=== PATIENT | female | born 1950 | race Caucasian/White ===

== ENCOUNTER 2021-10-09 06:00 | Outpatient (RCR) | payer MEDICARE, BC, SELFPAY | END 2021-10-24 23:59 | disposition home or self-care (01) | LOC: MPT 06:00 | PROVIDERS: PCP Family Medicine; Referring Provider Family Medicine; Visit Provider Family Medicine | DX: N39.41 Urge incontinence (principal) | CPT/HCPCS: 97110; 97140; 97161; 97530 ==

== ENCOUNTER 2021-10-25 06:00 | Outpatient (RCR) | payer MEDICARE, BC, SELFPAY | END 2021-11-24 23:59 | disposition home or self-care (01) | LOC: MPT 06:00 | PROVIDERS: PCP Family Medicine; Referring Provider Family Medicine; Visit Provider Family Medicine | DX: N39.41 Urge incontinence (principal) | CPT/HCPCS: 97110; 97140; 97530 ==

== ENCOUNTER 2021-10-26 09:14 | Outpatient (CLI) | payer MEDICARE, BC, SELFPAY ==
--- NOTE | 2021-10-26 09:20 | US_ITS ---
WS: [email or web address] ULTRASOUND ABDOMEN LIMITED CLINICAL INFORMATION: ABNORMAL LEVELS OF OTHER SERUM ENZYMES COMPARISON: None. FINDINGS: Liver Size: Normal. Craniocaudal length: 11.7 cm. Echogenicity: Normal. Surface nodularity: None. Mass (size and location): None. Bile ducts Intrahepatic ducts: Normal. Common bile duct diameter: 0.3 cm. Gallbladder Normal. Gallstones: None. Gallbladder sludge: None. Gallbladder wall thickening: None. Pericholecystic fluid: None. Sonographic Clarke sign: Absent. Pancreas Normal as visualized. Right kidney: Normal. Hydronephrosis: None. Size: 10.8 cm x 4.5 cm x 4.8 cm. Abdominal aorta and IVC Visualized portions are normal. Ascites: None. US/US abdomen limited [id number] IMPRESSION: Normal right upper quadrant ultrasound.
== END 2021-10-26 09:15 | disposition home or self-care (01) ==
PROVIDERS: PCP Family Medicine; Visit Provider Family Medicine
DX: R74.8 Abnormal levels of other serum enzymes (principal)
CPT/HCPCS: 76705

== ENCOUNTER 2021-11-02 11:54 | Outpatient (CLI) | payer MEDICARE, BC, SELFPAY ==
--- NOTE | 2021-11-02 11:58 | MM_ITS ---
WS: [email or web address] SCREENING DIGITAL MAMMOGRAM WITH CAD HISTORY: SCREENING COMPARISON: 04/27/2019 and 02/14/2017 Bilateral CC and MLO views submitted. Computer aided detection analyzed. Breast composition: There are scattered areas of fibroglandular density. Focal asymmetry measuring 7 mm along the inferior RIGHT breast seen on the MLO projection only. Additional benign calcifications within each breast. MM/[place] [id number] IMPRESSION: BI-RADS: 0-Incomplete: Need additional imaging evaluation FOLLOW UP: Need Additional Imaging RIGHT breast: Spot compression views (MLO). True ML. Ultrasound to follow if ab normality persists.
== END 2021-11-02 11:55 | disposition home or self-care (01) ==
LOC: RADSHAW 11:56
PROVIDERS: PCP Family Medicine; Visit Provider Family Medicine
DX: Z12.31 Encounter for screening mammogram for malignant neoplasm of breast (principal)
CPT/HCPCS: 77067

== ENCOUNTER 2022-01-09 08:46 | Outpatient (CLI) | payer MEDICARE, BC, SELFPAY ==
--- NOTE | 2022-01-09 08:56 | US_ITS ---
WS: [email or web address] ADDITIONAL VIEWS RIGHT BREAST RIGHT breast ultrasound, limited HISTORY: Additional imaging after screening examination. COMPARISON: 11/02/2021, 04/27/2019 Compression views right MLO projection. True ML also submitted. The ill-defined asymmetry seen on the screening mammogram persists but slightly improved along the an terior to mid RIGHT breast just below the nipple line. This is really only seen on the MLO view. Obsc ured on the additional views by fibroglandular tissue. RIGHT breast ultrasound, limited. Ultrasound is directed along the 3 and 4:00 and 8 at 9:00 axis. No mass is identified. There is no sh adowing or suspicious area by ultrasound. US/US breast RT limited* [id number] IMPRESSION: BI-RADS: 3-Probably Benign FOLLOW-UP: 6 Month Follow-up Recommend 6 month diagnostic mammogram follow-up of the RIGHT breast. Ultrasoun d may be necessary. The asymmetry is seen only on one view and not on the ultra sound. This may be superimposed fibroglandular tissue.
== END 2022-01-09 08:47 | disposition home or self-care (01) ==
PROVIDERS: PCP Family Medicine; Visit Provider Family Medicine
DX: N64.89 Other specified disorders of breast (principal)
CPT/HCPCS: 76642; 77065

== ENCOUNTER → 2022-04-16 08:42 | Outpatient (BNVA) | payer MEDICARE, BC, SELFPAY | PROVIDERS: PCP Family Medicine; Visit Provider Surgery | DX: Z86.010 Personal history of colon polyps (principal); Z80.0 Family history of malignant neoplasm of digestive organs ==

== ENCOUNTER 2022-04-16 09:57 | Outpatient (CLI) | payer MEDICARE, BC, SELFPAY ==
--- NOTE | 2022-04-16 10:10 | XR_ITS ---
WS: [email or web address] LUMBAR SPINE: 3 VIEWS TECHNIQUE: AP, lateral and L5-S1 spot. HISTORY: DORSALGIA COMPARISON: None available. Mild straightening of the L4-5 vertebral bodies. Severe disc space narrowing at L4-5 and L5-S1 with a ssociated facet arthritis. No fractures. Mild diffuse osteopenia. Pedicles are all identified. Partial sacralization of the RIGHT L5 transverse process. Multiple sclerosis RIGHT SI joint. XR/XR lumbar spine 2-3V* [id number] IMPRESSION: 1. No acute fracture. 2. Moderate degenerative disc disease and facet arthritis at L4-5 and L5-S1.
== END 2022-04-16 09:58 | disposition home or self-care (01) ==
LOC: RAD 09:59
PROVIDERS: PCP Family Medicine; Visit Provider Family Medicine
DX: M54.9 Dorsalgia, unspecified (principal); M51.36 Other intervertebral disc degeneration, lumbar region
CPT/HCPCS: 72100

== ENCOUNTER 2022-05-29 12:11 | Outpatient (CLI) | payer MEDICARE, BC, SELFPAY ==
--- NOTE | 2022-05-29 12:22 | MR_ITS ---
WS: [email or web address] MRI LUMBAR SPINE NONCONTRAST HISTORY: HX OF SPINAL STENOSIS/LOW BACK PAIN COMPARISON: None available. TECHNIQUE: Sagittal and axial multisequence imaging is submitted. Moderate increase in the mid to upper thoracic kyphosis. Mild straightening of the normal lumbar lordosis. L3 anterolisthesis by 2 mm. No acute fracture or marrow edema. Moderate disc space narrowing at L4-5 and L5-S1. Conus terminates normally at L1-2 disc level. L1-L2: Normal. L2-L3: Mild disc bulging. Disc bulge is slightly asymmetric to the LEFT. No stenosis. L3-L4: Mild annular disc bulging with ligamentum flavum and facet arthritis. No significant stenosis. Mild facet arthritis. L4-L5: Diffuse mild osteophytic ridging and annular disc bulging. Disc contacts the traversing L5 ner ve roots in the subarticular recesses. Mild central and subarticular recess encroachment by disc dise ase. Mild bilateral ligamentum flavum hypertrophy and facet arthritis. Small bilateral foraminal oste ophytes. Very slight foraminal narrowing. L5-S1: Small LEFT foraminal disc osteophyte without significant stenosis. There may be very slight co ntact on the LEFT L5 and S1 nerve roots. MR/MR lumbar spine wo con* [id number] IMPRESSION: 1. Moderate degenerative disc space narrowing at L4-5 and L5-S1. 2. Small LEFT foraminal disc osteophyte at L5-S1 with slight contact on the L5 and S1 nerve roots. 3. Mild central and subarticular recess stenosis at L4-5 with mild disc contac ting the L5 nerve roots bilaterally.
== END 2022-05-29 12:12 | disposition home or self-care (01) ==
PROVIDERS: PCP Family Medicine; Visit Provider Family Medicine
DX: M48.061 Spinal stenosis, lumbar region without neurogenic claudication (principal); M54.50 Low back pain, unspecified; M47.897 Other spondylosis, lumbosacral region
CPT/HCPCS: 72148

== ENCOUNTER 2022-06-27 08:59 | Outpatient (CLI) | payer MEDICARE, BC, SELFPAY ==
--- NOTE | 2022-06-27 09:04 | MM_ITS ---
WS: [email or web address] DIAGNOSTIC RIGHT DIGITAL BREAST TOMOSYNTHESIS MAMMOGRAPHY WITH CAD. RIGHT breast ultrasound, limited HISTORY: ABNORMAL/INCONCLUSIVE MAMMO, 6 month follow-up. COMPARISON: 01/09/2022, 11/02/2021 and 04/27/2019 Technique: CC, MLO and ML views. Spot imaging and MLO. Breast composition: There are scattered areas of fibroglandular density. Benign calcifications in ea ch breast. The 7 mm asymmetry is again noted in the inferior RIGHT breast seen only on the MLO view. This persists but has not changed in size or density since the prior study. RIGHT breast ultrasound, limited. Ultrasound is directed at 3 and 4:00 and also 7 and 9:00. There is no corresponding mass in either lo cation. There is a small cyst at 9:00 2 cm from the nipple which does not have the same shape or size as the mammogram abnormality. MM/[place] [id number] IMPRESSION: BI-RADS: 3-Probably Benign FOLLOW UP: 6 Month Follow-up Patient to return in 6 months for annual mammogram. Additional imaging of this RIGHT breast asymmetry can be performed at that time. There has been no interva l change since 01/09/2022.
== END 2022-06-27 09:00 | disposition home or self-care (01) ==
LOC: RAD 09:01
PROVIDERS: PCP Family Medicine; Visit Provider Family Medicine
DX: M54.50 Low back pain, unspecified (principal); M79.604 Pain in right leg; M79.605 Pain in left leg; F17.200 Nicotine dependence, unspecified, uncomplicated; R92.8 Other abnormal and inconclusive findings on diagnostic imaging of breast
CPT/HCPCS: 76642; 77061; 99204

== ENCOUNTER 2022-07-02 06:00 | Outpatient (RCR) | payer MEDICARE, BC, SELFPAY | END 2022-07-25 23:59 | disposition home or self-care (01) | LOC: MPT 06:00 | PROVIDERS: PCP Family Medicine; Referring Provider Anesthesiology Pain Medicine; Visit Provider Anesthesiology Pain Medicine | DX: M54.50 Low back pain, unspecified (principal); G89.29 Other chronic pain | CPT/HCPCS: 97110; 97140; 97162; G0283 ==

== ENCOUNTER 2022-08-02 05:48 | Day surgery (SDC) | payer MEDICARE, BC, SELFPAY ==
[2022-07-31 11:47] VITALS: BMI 32.4
[2022-08-02 06:07] VITALS: BP 124/65; PULSE 101; RESP 16; TEMP 36.8; O2SAT 93
[2022-08-02] MEDS: sodium chloride 0.9% 1,000 ML 30 ML IV (06:21)
--- NOTE | 2022-08-02 06:24 | W.PM.OPSFHP ---
Same Day Surgery H&P Indication for Procedure/HPI DATE OF PROCEDURE: August 02, 2022 CHIEF COMPLAINT/INDICATIONFOR SURGICAL PROCEDURE: History of colon polyps PREOP DIAGNOSIS: Family history of colon cancer PLANNED PROCEDURE: Operation Date: 08/02/22 07:00 Proposed Procedures p Colonoscopy 42440,Z86.010(Not Applicable) - Brian Schneider MD 04/16/22 This is a pleasant 72 years old female patient, referred to my practice with history of colon polyps and gives a history of her dad at 67 of age developed colon cancer.? Patient denies bleeding per rectum or nonintentional weight loss.? Last colonoscopy was done back in 2019 08/02/2022 Patient comes today for surveillance colonoscopy ROS All systems have been reviewed negative except as for the above or per problem list. Medications/Allergies* Home Medications Medication Instructions Recorded Confirmed Type levothyroxine 25 mcg capsule 25 mcg PO DAILY 04/16/22 08/02/22 History aripiprazole 2 mg tablet (Abilify) 2 mg PO DAILY 06/20/22 08/02/22 History cholecalciferol (vitamin D3) 50 100 mcg PO DAILY 06/20/22 08/02/22 History mcg (2,000 unit) tablet escitalopram oxalate 10 mg tablet 10 mg PO DAILY 06/20/22 08/02/22 History gabapentin 100 mg capsule 200 mg PO DAILY 06/20/22 08/02/22 History acetaminophen 500 mg tablet 500 mg PO Q6H PRN Pain 06/27/22 07/31/22 History (Tylenol Extra Strength) aspirin 325 mg tablet,delayed 325 mg PO DAILY PRN inflammation 06/27/22 08/02/22 History release ibuprofen 200 mg tablet 200 mg PO Q6H PRN Pain 06/27/22 08/02/22 History Allergies/Adverse Reactions Allergy/AdvReac Type Severity Reaction Status Date / Time immune globulin,alpha (IgA) Allergy Unknown Verified 08/02/22 06:25 Current Medications: Generic Name Dose Route Start Last Admin Trade Name Freq PRN Reason Stop Dose Admin Sodium Chloride 1,000 mls @ 30 mls/hr 08/02/22 06:00 08/02/22 06:21 Sodium Chloride 0.9% IV 30 mls/hr .Q24H RUPESH Administration Pertinent History/Comorbid Conditions* Medical History (Updated 06/24/22 @ 13:57 by Angela Alvarez MD) Anxiety Major depressive disorder Psychiatric care Family History (Updated 06/27/22 @ 10:31 by Meseret Multani) Rheumatoid arthritis Brother Thyroid cancer Sister Diabetes Sister CAD (coronary artery disease) Abdominal aortic aneurysm Brother Hypertriglyceridemia Brother Sister Father Dementia Fibromyalgia Sister Heart disease Sister Hypercholesterolemia Brother Sister Father Hyperthyroidism Mother Cancer Hypertension Brother Sister Father Family/Other Family/Other Denies family history of Chronic kidney disease (CKD) Anesthesia complication Lung disease Stroke Social History Smoking and tobacco status: current every day smoker Alcohol intake: current Alcohol intake frequency: few times a week Lives independently: Yes Pertinent Exam Findings alert, oriented x 3, regular rate & rhythm and procedure specific exam findings (Abdominal examination nontender nondistended soft) Recommendations Surgery/Procedure today (Colonoscopy with possible biopsy) Coding Level of Care 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
[2022-08-02 07:39] VITALS: BP 100/55; PULSE 78; RESP 16; TEMP 36.5; O2SAT 93
[2022-08-02 07:50] VITALS: BP 126/71; PULSE 83; RESP 16; O2SAT 94
--- NOTE | 2022-08-02 09:30 | P.ANESASSM_ITS ---
Pre-Anesthetic Assessment Height/Weight: Height 1.63 m Weight 85.729 kg Temp Pulse Resp BP Pulse Ox O2 Del Method 97.7 F 83 16 126/71 94 08/02/22 07:39 08/02/22 07:50 08/02/22 07:50 08/02/22 07:50 08/02/22 07:50 08/02/22 07:50 Preop Diagnosis: Family history of colon cancer Operation Date: 08/02/22 07:00 Proposed Procedures p Colonoscopy 59650,Z86.010(Not Applicable) - Brian Schneider MD Last intake: Intake Last Liquid Date 08/01/22 Last Liquid Time 19:30 Last Solid Date 07/31/22 Last Solid Time 16:00 Social Alcohol (2 drinks daily) and Tobacco (last cig last night. 6 cigs per day) Exam alert, oriented x 3, clear to auscultation bilaterally and regular rate & rhythm Airway Cervical ROM: within normal limits Mallampati: Class II Dentition: loose (upper back left tooth) History/ROS No significant history except as noted Musc/skel Lower Back Pain Neuropsych Anxiety and Depression Anesthetic Plan ASA status: 2 Anesthesia: Anesthesia Evaluation, MAC and Local Only Risk of > 500 ml blood loss (7ml/kg in children): Yes, adequate IV access and fluids planned Medications/Allergies Home Medications Medication Instructions Recorded Confirmed Last Taken Type levothyroxine 25 mcg capsule 25 mcg PO DAILY 04/16/22 08/02/22 08/02/22 History aripiprazole 2 mg tablet (Abilify) 2 mg PO DAILY 06/20/22 08/02/22 08/01/22 H istory cholecalciferol (vitamin D3) 50 100 mcg PO DAILY 06/20/22 08/02/22 08/01/22 History mcg (2,000 unit) tablet escitalopram oxalate 10 mg tablet 10 mg PO DAILY 06/20/22 08/02/22 08/01/22 History gabapentin 100 mg capsule 200 mg PO DAILY 06/20/22 08/02/22 08/01/22 History acetaminophen 500 mg tablet 500 mg PO Q6H PRN Pain 06/27/22 07/31/22 Unknown History (Tylenol Extra Strength) aspirin 325 mg tablet,delayed 325 mg PO DAILY PRN inflammation 06/27/22 08/02/22 Unknown History release ibuprofen 200 mg tablet 200 mg PO Q6H PRN Pain 06/27/22 08/02/22 Unknown History lorazepam 1 mg tablet See Rx Instructions .Route 07/31/22 08/02/22 08/01/22 Rx .COMPLEX PRN anxiety #45 tabs Allergies Allergy/AdvReac Type Severity Reaction Status Date / Time immune globulin,alpha (IgA) Allergy Unknown Verified 08/02/22 06:25 [facility] Anesthesia Medical History Anxiety Major depressive disorder Psychiatric care Family History Brother Abdominal aortic aneurysm Hypercholesterolemia Hypertension Hypertriglyceridemia Rheumatoid arthritis Sister Diabetes Fibromyalgia Heart disease Hypercholesterolemia Hypertension Hypertriglyceridemia Thyroid cancer Father Hypercholesterolemia Hypertension Hypertriglyceridemia Mother Hyperthyroidism Family/Other Hypertension Family/Other Hypertension Other CAD (coronary artery disease) Cancer Dementia Denies family history of Chronic kidney disease (CKD) Anesthesia complication Lung disease Stroke Social History Smoking and tobacco status: current every day smoker Alcohol intake: current Alcohol intake frequency: few times a week Lives independently: Yes Data Anesthesia Cardiac Studies: No Data to Display
== END 2022-08-02 08:08 | disposition home or self-care (01) ==
PROVIDERS: PCP Family Medicine; Visit Provider Surgery
PROC: 0DJD8ZZ Inspection of Lower Intestinal Tract, Via Natural or Artificial Opening Endoscopic (ICD-10-PCS; CPT 45378; principal; 2022-08-02 07:00)
DX: Z12.11 Encounter for screening for malignant neoplasm of colon (principal); K63.5 Polyp of colon; F17.200 Nicotine dependence, unspecified, uncomplicated; Z79.82 Long term (current) use of aspirin; Z86.010 Personal history of colon polyps; Z80.0 Family history of malignant neoplasm of digestive organs
CPT/HCPCS: 45382; 45385; 88305; J2001; J2704; J7030

== ENCOUNTER → 2022-08-16 16:08 | Outpatient (BNVA) | payer MEDICARE, BC, SELFPAY | PROVIDERS: PCP Family Medicine; Visit Provider Surgery | DX: Z09 Encounter for follow-up examination after completed treatment for conditions other than malignant neoplasm (principal); K57.31 Diverticulosis of large intestine without perforation or abscess with bleeding; K63.5 Polyp of colon | CPT/HCPCS: 99212 ==

== ENCOUNTER 2022-09-11 14:57 | Outpatient (CLI) | payer MEDICARE, BC, SELFPAY ==
--- NOTE | 2022-09-11 15:08 | XR_ITS ---
WS: [email or web address] DEXA (DUAL ENERGY X-RAY ABSORPTIOMETRY) Bone mineral density was performed using a [employer] machine. HISTORY: ASYMPTOMATIC MENOPAUSAL STATE COMPARISON: 04/27/2019 Lumbar spine BMD (L1-L4): 1.243 g/cm2 T score: 0.5 Z score: 1.6 Total hip BMD: Left: 0.944 g/cm2. T score: -0.5 Z score: 0.7 Right: 0.947 g/cm2. T score: -0.5 Z score: 0.7 10 year probability of a major osteoporotic fracture is 14.1%. Compared to the prior study from 04/27/2019. Lumbar spine bone mineral density has increased by 2.1%. Bilateral hips bone mineral density has increased by 0.9%. XR/XR DEXA axial skeleton* [id number] IMPRESSION: NORMAL BONE MINERAL DENSITY based upon the WHO classification for females. Minimal significant increase in bone mineral density of the lumbar spine since the prior study.
== END 2022-09-11 14:58 | disposition home or self-care (01) ==
LOC: RAD 14:58
PROVIDERS: PCP Family Medicine; Visit Provider Family Medicine
DX: Z78.0 Asymptomatic menopausal state (principal)
CPT/HCPCS: 77080

== ENCOUNTER 2022-10-29 10:34 | Outpatient (CLI) | payer MEDICARE, BC, SELFPAY ==
--- NOTE | 2022-10-29 10:42 | CT_ITS ---
WS: [email or web address] CT ABDOMEN WITH CONTRAST HISTORY: ELEVATED LIVER ENZYMES Contiguous single phase 5 mm axial imaging performed to the abdomen. Oral contrast has been provided. Coronal and sagittal reformats are submitted. All CT scans at [facility] use at least one of these dose optimization techniques: automated exposure control; mA and/or kV adjustment per patient size (includes targeted exams where dose is matched to clinical indication); or iterative reconstruct ion. CONTRAST: Omnipaque 350; 95 mL IV. DLP: 1244.40 mGy.cm COMPARISON: 05/14/2018 Lower thorax: Two adjacent 3 mm nodules at the RIGHT lung base. Minimal bilateral lower lobe atelect asis. No effusions. Normal size heart. Mild vascular calcifications in the coronary arteries. Small h iatal hernia. Liver: Normal size liver. Normal portal vein. No evidence for hepatic steatosis. Normal bile ducts. L ow-attenuation 5 mm nodule adjacent to the middle hepatic vein is too small to characterize. Most lik viky represents a small cyst. Hepatic steatosis has improved since 05/14/2018. Gallbladder: Normal. Pancreas: Normal. Spleen: Normal. Adrenals: Normal RIGHT adrenal gland. Very mild hyperplasia LEFT adrenal gland. No mass. Right kidney: Negative as imaged. Only partial included in this examination of the abdomen. Left kidney: Negative is imaged. The lower pole is not included. Aorta: 2 GI tract: Negative as images through the abdomen. No adenopathy or free fluid. Abdominal wall: No hernia. Visualized osseous structures: Unremarkable. CT/CT abdomen w con* [id number] IMPRESSION: 1. Normal liver. No bile duct dilatation or hepatic steatosis. 2. Too small to characterize 5 mm hypodense dense nodule. Probably represents a small cyst. 3. Improved hepatic steatosis since 2018. 4. Normal portal vein. 5. 3 mm pulmonary nodules at the RIGHT lung base. New since the prior study. W ith no history of malignancy these are probably postinflammatory. If further ev aluation is clinically thought necessary these can be followed up in 6-12 month s by noncontrast chest CT.
[2022-10-29] MEDS: iohexol 350 mg/mL 500 mL Btl (per mL) IV (12:28)
== END 2022-10-29 10:35 | disposition home or self-care (01) ==
LOC: RAD 10:36
PROVIDERS: PCP Family Medicine; Visit Provider Family Medicine
DX: R74.8 Abnormal levels of other serum enzymes (principal); R91.8 Other nonspecific abnormal finding of lung field
CPT/HCPCS: 74160; Q9967

== ENCOUNTER 2023-05-30 10:17 | Outpatient (CLI) | payer MEDICARE, BC, SELFPAY ==
--- NOTE | 2023-05-30 10:30 | CT_ITS ---
WS: [email or web address] CT CHEST TECHNIQUE: Noncontrast CT of the chest with coronal and sagittal reformatted images. CLINICAL INFORMATION: R PULMONARY NODULE COMPARISON: CT abdomen pelvis October 29, 2022 DLP: 315.[address] scans at [facility] use at least one of these dose optimization techniques: automated e xposure control; mA and/or kV adjustment per patient size (includes targeted exams where dose is matc hed to clinical indication); or iterative reconstruction. FINDINGS: Subsegmental atelectasis. Previously described adjacent nodules in the RIGHT lower lobe are persisten t. Trace atelectasis LEFT lower lobe. Largest RIGHT lower lobe nodule measuring 4.7 mm and the smalle r nodule measuring 3.7 mm. These appear stable compared to the prior CT. Recommend continued surveill ance. Normal caliber thoracic aorta. Aortic Calcification. Coronary calcification. No mediastinal or hilar lymphadenopathy. No axillary lymphadenopathy. Tiny esophageal hiatal hernia. Adrenal glands appear normal. Splenic artery calcification. Mild thoracic curve with mild thoracic ky phosis. CT/CT chest wo con [id number] IMPRESSION: 1. Persistent adjacent 3.7 and 4.7 mm pulmonary nodules in the RIGHT lower lob e with adjacent subsegmental atelectasis. These appear unchanged compared to pr evious and recommend continued surveillance with 12 month follow-up. 2. Lungs are otherwise well aerated. 3. No mediastinal or hilar lymphadenopathy.
== END 2023-05-30 10:18 | disposition home or self-care (01) ==
LOC: RAD 10:22
PROVIDERS: PCP Family Medicine; Visit Provider Family Medicine
DX: R91.8 Other nonspecific abnormal finding of lung field (principal); J98.11 Atelectasis
CPT/HCPCS: 71250

== ENCOUNTER 2023-12-12 06:26 | Outpatient (CLI) | payer MEDICARE, BC, SELFPAY ==
--- NOTE | 2023-12-12 | USCV_ITS ---
Penny Ojeda Age: 73 Gender: F : 1950 Exam Date: 12/12/2023 06:44 Ordering Phys: Fabienne Martínez MD Technologist: JUNIOR Exam Location: [facility] Indication: CVA, HTN BP: 164 / 69 HR: 61 Rhythm: Sinus Technical Quality: Adequate MEASUREMENTS (Male / Female) Normal Values 2D ECHO LVOT Diameter 1.8 cm LV Ejection Fraction MOD 2C 64.0 % LV Ejection Fraction 2C AL 63.6 % LA Diameter 2.9 cm LA Width 3.8 cm LA Height 4.5 cm RA Width 3.1 cm RA Height 4.4 cm Aorta at Sinotubular Diameter 1.8 cm IVC Diameter 1.2 cm M-MODE Aortic Annulus Diameter 2.8 cm LA Ao Ratio MM 1.0 MV E Point Septal Separation 0.4 cm DOPPLER AV Peak Velocity 139.3 cm/s LVOT Peak Velocity 121.0 cm/s AV Area Cont Eq vti 2.5 cm squared AV Area Cont Eq pk 2.2 cm squared MV Peak Velocity 93.0 cm/s MV Area PHT 3.5 cm squared Mitral E to A Ratio 0.8 MV E' Velocity 46.5 cm/s Mitral E to MV E' Ratio 10.5 Mitral E to LV E' Lateral Ratio 12.5 Mitral E to LV E' Septal Ratio 9.2 TR Peak Velocity 246.3 cm/s TR Peak Gradient 24.3 mmHg TR Mean Velocity 210.0 cm/s TR Mean Gradient 18.1 mmHg TR Velocity Time Integral 84.0 cm TV Peak E Velocity 55.0 cm/s Right Atrial Pressure 3.0 mmHg Pulmonary Artery Systolic Pressu 27.3 mmHg FINDINGS Left Ventricle Technically limited quality echocardiogram because of poor ultrasonic windows. LV systolic function is normal with EF of 60 to 65%. No regional wall motion abnormalities are seen. Right Ventricle Not well-visualized Right Atrium Normal in size Left Atrium Normal in size Mitral Valve Structurally normal mitral valve. Trace mitral regurgitation Aortic Valve Grossly normal aortic valve. No significant stenosis or regurgitation. Tricuspid Valve Insufficient TR jet to calculate RVSP Pulmonic Valve Not well-visualized Pericardium Grossly normal Aorta Not well-visualized IVC Not well-visualized CONCLUSIONS Technically limited quality echocardiogram because of poor ultrasonic windows. LV systolic function is normal with EF of 60 to 65%. Trace mitral regurgitation No comparison studies are available. Jayy Garay MD (Electronically Signed) Final Date: 27 December 2023 15:29 S
== END 2023-12-12 06:27 | disposition home or self-care (01) ==
LOC: RAD 06:28
PROVIDERS: Visit Provider Family Medicine
DX: I63.9 Cerebral infarction, unspecified (principal); I10 Essential (primary) hypertension; Z72.0 Tobacco use
CPT/HCPCS: 93306

== ENCOUNTER 2023-12-12 16:33 | Outpatient (CLI) | payer MEDICARE, BC, SELFPAY ==
--- NOTE | 2023-12-12 16:37 | MR_ITS ---
WS: [email or web address] MRI HEAD WITHOUT CONTRAST TECHNIQUE: Sagittal T1, T2 axial, T2 axial FLAIR, axial and coronal T1 images, axial susceptibility w eighted imaging, axial diffusion weighted images, and coronal T2 images were obtained. CLINICAL INFORMATION: CVA COMPARISON: None. FINDINGS: 10 mm focus of acute ischemia along the LEFT lateral thalamus and posterior limb LEFT internal capsul e. No other foci of acute ischemia. Mild small vessel changes. Moderate parenchymal volume loss. No h emosiderin on the susceptibly weighted images. Normal optic chiasm and pituitary infundibulum. Tempor al lobes and hippocampal formations are normal in appearance. Normal posterior fossa. Normal vascular flow voids at the skull base. No extra-axial fluid collection s. No evidence of mass or mass effect. Mild mucosal thickening in the paranasal sinuses. Mastoid air cells are well aerated. IMPRESSION: 1. 10 mm focus of acute ischemia along the LEFT lateral thalamus and posterior limb LEFT internal ca psule. 2. No other foci of acute ischemia. 3. Mild small vessel changes. Moderate parenchymal volume loss. 4. No hemosiderin on the susceptibly weighted images.
--- NOTE | 2023-12-12 16:37 | MR_ITS ---
WS: [email or web address] MRA HEAD TECHNIQUE: Axial 3-D TOF images obtained with axial images and axial, sagittal, and coronal 2-D refor matted images. CLINICAL INFORMATION: CVA COMPARISON: None. FINDINGS: Distal vertebral arteries are patent. Basilar artery is patent. Normal vascularity to the PLANISHER territo ry bilaterally. Both ICAs are patent at the skull base. Normal vascularity to the JULEE and RIGHT MCA territory. Modera te stenosis LEFT M2 proximal branches anterior and posterior division. Distal vessels remain patent. IMPRESSION: 1. Moderate stenosis LEFT M2 proximal insular branches anterior and posterior division. Distal vess els remain patent. 2. Normal vascularity to the JULEE and RIGHT MCA territory. 3. No other suspicious findings. Notified Fabienne Martínez MD at 12/13/2023 8:52 AM.
== END 2023-12-12 16:34 | disposition home or self-care (01) ==
LOC: RAD 16:34
PROVIDERS: Visit Provider Family Medicine
DX: I63.9 Cerebral infarction, unspecified (principal); I67.82 Cerebral ischemia; I67.89 Other cerebrovascular disease; I66.8 Occlusion and stenosis of other cerebral arteries; I10 Essential (primary) hypertension; Z72.0 Tobacco use
CPT/HCPCS: 70544; 70551; 93306

== ENCOUNTER 2023-12-17 06:00 | Outpatient (RCR) | payer MEDICARE, BC, SELFPAY | END 2023-12-25 23:59 | disposition home or self-care (01) | LOC: MR3 06:00 | PROVIDERS: Visit Provider Family Medicine | DX: I63.9 Cerebral infarction, unspecified (principal); I27.0 Primary pulmonary hypertension; R26.81 Unsteadiness on feet | CPT/HCPCS: 97110; 97112; 97162; 97166 ==

== ENCOUNTER 2023-12-26 06:00 | Outpatient (RCR) | payer MEDICARE, BC, SELFPAY | END 2024-01-23 23:59 | disposition home or self-care (01) | LOC: MR3 06:00 | PROVIDERS: Visit Provider Family Medicine | DX: R26.81 Unsteadiness on feet (principal); I63.9 Cerebral infarction, unspecified; I27.0 Primary pulmonary hypertension | CPT/HCPCS: 97110; 97112; 97535 ==

== ENCOUNTER 2024-01-24 06:00 | Outpatient (RCR) | payer MEDICARE, BC, SELFPAY | END 2024-01-28 23:59 | disposition home or self-care (01) | LOC: MR3 06:00 | PROVIDERS: Visit Provider Family Medicine | DX: I69.30 Unspecified sequelae of cerebral infarction (principal); I10 Essential (primary) hypertension | CPT/HCPCS: 97110; 97112 ==

== ENCOUNTER 2024-06-12 08:55 | Outpatient (CLI) | payer MEDICARE, BC, SELFPAY ==
--- NOTE | 2024-06-12 08:57 | CT_ITS ---
WS: [email or web address] CT chest wo con [id number] HISTORY: SOLITARY PULMONARY NODULE TECHNIQUE: Axial imaging performed through the thorax. Coronal and sagittal reformats are submitted. All CT scans at [facility] use at least one of these dose optimization techniques: automated exposure control; mA and/or kV adjustment per patient size (includes targeted exams where dose is mat ched to clinical indication); or iterative reconstruction. CONTRAST: None DLP: 435.92 mGy.cm COMPARISON: 05/30/2023 Lungs and central airway: No interval change in the 3 to 4 mm noncalcified pulmonary nodules in the R IGHT lower lobe. The adjacent atelectasis persists but has significantly improved. No new mass or nod ule. No pneumonia. Pleura: Normal. No pleural effusion. Heart and pericardium: Normal size heart with no pericardial effusion. Mediastinum and jeni: Small benign-appearing lymph nodes. Vessels: Moderate atherosclerosis aorta. No aneurysm. Chest wall and lower neck: No soft tissue masses. Upper abdomen: Mild hepatic steatosis. No bile duct dilatation. Stable nodularity of the LEFT adrenal gland. Osseous structures: Marked increase in thoracic kyphosis. CT/CT chest wo con [id number] IMPRESSION: 1. Long-term stability subcentimeter pulmonary nodules in the RIGHT lower lobe . No additional follow-up necessary. 2. Moderate atherosclerosis aorta.
== END 2024-06-12 08:56 | disposition home or self-care (01) ==
LOC: RAD 08:55
PROVIDERS: PCP Family Medicine; Visit Provider Family Medicine
DX: R91.8 Other nonspecific abnormal finding of lung field (principal); I70.0 Atherosclerosis of aorta; M40.294 Other kyphosis, thoracic region; K76.0 Fatty (change of) liver, not elsewhere classified; E27.9 Disorder of adrenal gland, unspecified
CPT/HCPCS: 71250